=== PATIENT | female | born 1995 | race African-American/Black ===

== ENCOUNTER 2020-11-05 19:20 | Emergency (ER) | payer BC, MEDICAID ==
[~2020-11-05] VITALS: Ht 177.8 cm; Wt 86.2 kg
[2020-11-05 20:10] VITALS: BP 127/69
--- NOTE | 2020-11-05 20:13 | NUR ---
TO LOBBY A/W BED AMBULATORY
[2020-11-05 21:09] LABS: BASOPHILS % (AUTO) 0.2 % (0.0-2.0); EOSINOPHILS # (AUTO) 0.1 K/uL (0-0.4); EOSINOPHILS % (AUTO) 1.2 % (0.0-4.0); HEMATOCRIT 32.5 % (36-48); HEMOGLOBIN 10.7 g/dL (12.0-16.0); LYMPHOCYTES # (AUTO) 1.7 K/uL (2.5-16.5); LYMPHOCYTES % (AUTO) 29.7 % (20.5-51.1); MEAN CORPUSCULAR HEMOGLOBIN 28 pg (27-31); MEAN CORPUSCULAR HGB CONC 33 g/dL (33-37); MEAN CORPUSCULAR VOLUME 83.6 fL (80-94); MONOCYTES # (AUTO) 0.3 K/uL (0.8-1.0); NEUTROPHILS # (AUTO) 3.6 K/uL (1.8-7.7); NEUTROPHILS % (AUTO) 62.9 % (42.2-75.2); PLATELET COUNT (AUTO) 263 K/uL (140-450); RED BLOOD CELL COUNT(AUTO) 3.88 MIL/uL (4.20-5.40); RED CELL DISTRIBUTION WIDTH 15.4 % (11.6-13.7); WHITE BLOOD COUNT (AUTO) 5.8 K/uL (4.8-10.8)
[2020-11-05 21:29] LABS: ALBUMIN 3.3 g/dL (3.4-5.0); ANION GAP 7.8 (8-16); CARBON DIOXIDE 28.2 mmol/L (21-32); CREATININE 0.8 mg/dL (0.6-1.3); TOTAL BILIRUBIN 0.2 mg/dL (0.0-1.0)
--- NOTE | 2020-11-05 21:36 | NUR ---
To bed 12
--- NOTE | 2020-11-05 22:40 | NUR ---
ERMD at bedside for re-examination and informing about results on patient
[2020-11-05] MEDS ORDERED: KETOROLAC 60 MG/2 ML VIAL IM ONE (22:55)
[2020-11-05] MEDS ORDERED: NACL 0.9% 1,000 ML IV ONE (22:55)
[2020-11-05] MEDS ORDERED: NAPR-54 PO (22:59)
--- NOTE | 2020-11-06 00:18 | NUR ---
IV removed, catheter intact and site benign. Applied folded 4x4 gauze and tape to stop bleeding.
[2020-11-06 00:23] VITALS: BP 118/47
== END 2020-11-06 00:21 | disposition home or self-care (01) ==
LOC: MED 19:20
DX: N93.9 Abnormal uterine and vaginal bleeding, unspecified (principal); Z79.899 Other long term (current) drug therapy
CPT/HCPCS: 36415; 80053; 84703; 85025; 86900; 86901; 96360; 96372; 99284; J1050; J1885; J7030

== ENCOUNTER 2021-02-05 21:54 | Emergency (ER) | payer MEDICAID ==
[~2021-02-05] VITALS: Ht 177.8 cm; Wt 87.5 kg
[~2021-02-05 21:54] MED LIST: NAPR-54 PO
[2021-02-05 22:11] VITALS: BP 129/80
--- NOTE | 2021-02-05 22:11 | NUR ---
TO BED AMBULATORY
[2021-02-05 22:15] VITALS: BP 129/80
--- NOTE | 2021-02-05 22:15 | NUR ---
25 YO F BIB SELF WITH C/C OF 9/10 VAGINAL PAIN X1 WEEK. DENIES DISCHARGE.+ODOR. PT STATES SHE IS ON CONTROL TO HELP CONTROL VAGINAL BLEEDING, IS ONLY SPOTTING NOW. REPORTS INCREASED FREQUENCY WITH URINATION. +BURNING +LOWER BACK PAIN, AND ABD CRAMPING. ALL NEEDS MET AT THIS TIME. BED LOCKED IN LOWEST POSITION,SIDE RAILS X1. HX:FIBRIODS DENIES RX AND ALLERGIES
--- NOTE | 2021-02-05 22:58 | NUR ---
WET MOUNT COLLECTED AND TAKEN TO LAB. PROTEIN SCIENTIST STATED TO LEAVE SPECIMEN ON TABLE.
[2021-02-05 23:37] LABS: APPEARANCE,URINE CLEAR (CLEAR); BILIRUBIN,URINE NEGATIVE (NEGATIVE); BLOOD, URINE NEGATIVE (NEGATIVE); COLOR,URINE YELLOW (YELLOW); LEUKOCYTE ESTERASE ,URINE NEGATIVE (NEGATIVE); NITRITE, URINE NEGATIVE (NEGATIVE); PH,URINE 5.5 (5.0-9.0); UGLUCOSE NEGATIVE (NEGATIVE)
[2021-02-06] MEDS ORDERED: KETOROLAC 60 MG/2 ML VIAL IM ONE (00:10)
[2021-02-06] MEDS ORDERED: METR-520 PO (00:45)
[2021-02-06] MEDS ORDERED: NAPR-54 PO (00:47)
--- NOTE | 2021-02-06 00:50 | NUR ---
PATIENT EXAMINED AND CLEARED DISCHARGE BY DR. WADE. DISCHARGE INSTRUCTIONS AND MEDICAITON ADMINISTRATION PROVIDED BY DR. WADE. RX OF DULCE MARIA AND RUTHY. PT AMBULATORY TO PERSONAL VEHICLE IN STABLE CONDITION.
== END 2021-02-06 00:50 | disposition home or self-care (01) ==
LOC: MED 21:54
DX: N76.0 Acute vaginitis (principal); B96.89 Other specified bacterial agents as the cause of diseases classified elsewhere; Z79.899 Other long term (current) drug therapy
CPT/HCPCS: 81003; 81025; 87210; 96372; 99283; J1885

== ENCOUNTER 2021-10-28 22:00 | Emergency (ER) | payer MEDICAID ==
[~2021-10-28] VITALS: Ht 177.8 cm; Wt 98.9 kg
[~2021-10-28 22:00] MED LIST changes: +METR-520 PO
[2021-10-28 22:08] VITALS: BP 116/59
--- NOTE | 2021-10-28 22:14 | NUR ---
PATIENT AMBULATED TO THE BATHROOM FOR URINE COLLECTION
--- NOTE | 2021-10-28 22:20 | NUR ---
[facility]
--- NOTE | 2021-10-28 23:42 | NUR ---
seen by KRISTOFER MOREL in chair A
--- NOTE | 2021-10-29 00:04 | NUR ---
PT TO BED 6 AMBULATORY
[2021-10-29 00:54] LABS: APPEARANCE,URINE CLEAR (CLEAR); BILIRUBIN,URINE NEGATIVE (NEGATIVE); BLOOD, URINE 2+ (NEGATIVE); COLOR,URINE YELLOW (YELLOW); LEUKOCYTE ESTERASE ,URINE NEGATIVE (NEGATIVE); NITRITE, URINE NEGATIVE (NEGATIVE); UGLUCOSE NEGATIVE (NEGATIVE)
--- NOTE | 2021-10-29 01:06 | NUR ---
LAB AT BEDSIDE
--- NOTE | 2021-10-29 01:14 | NUR ---
25YR OLD FEMALE BIB SELF C/O PELVIC PAIN X3DAYS. DENIES VAG DISCHARGE OR BLEEDING. STATES SPOTTING DARK BROWN BLOOD. HX OF FIBROIDS. PT IS A&OX4. RESP EVEN AND UNLABORED. PAIN LEVEL OF 10/10. DENIES FEVER N/V/D. PT IS IN GOWN HOB ELEVATED. BED AT LOWEST POSITION NKDA UTERINE FIBROIDS
[2021-10-29 01:15] LABS: RBC,URINE 0-5 /HPF (0-5); WBC,URINE 0-5 /HPF (0-5)
[2021-10-29 01:30] LABS: BASOPHILS % (AUTO) 0.4 % (0.0-2.0); EOSINOPHILS # (AUTO) 0.1 K/uL (0-0.4); EOSINOPHILS % (AUTO) 1.3 % (0.0-4.0); HEMATOCRIT 33.9 % (36-48); HEMOGLOBIN 11.1 g/dL (12.0-16.0); LYMPHOCYTES % (AUTO) 27.9 % (20.5-51.1); MEAN CORPUSCULAR HEMOGLOBIN 26 pg (27-31); MEAN CORPUSCULAR HGB CONC 33 g/dL (33-37); MEAN CORPUSCULAR VOLUME 80.6 fL (80-94); MONOCYTES # (AUTO) 0.5 K/uL (0.8-1.0); MONOCYTES % (AUTO) 6.7 % (1.7-9.3); NEUTROPHILS # (AUTO) 4.6 K/uL (1.8-7.7); NEUTROPHILS % (AUTO) 63.7 % (42.2-75.2); PLATELET COUNT (AUTO) 310 K/uL (140-450); RED BLOOD CELL COUNT(AUTO) 4.21 MIL/uL (4.20-5.40); RED CELL DISTRIBUTION WIDTH 14.1 % (11.6-13.7); WHITE BLOOD COUNT (AUTO) 7.2 K/uL (4.8-10.8)
[2021-10-29 01:51] LABS: ALBUMIN 3.7 g/dL (3.4-5.0); CREATININE 0.9 mg/dL (0.6-1.3); TOTAL BILIRUBIN 0.4 mg/dL (0.0-1.0)
[2021-10-29] MEDS ORDERED: NAPR-54 PO (04:14)
--- NOTE | 2021-10-29 04:35 | NUR ---
PT PROVIDED WITH DISCHARGE INSTRUCTIONS BY DR. WADE. RX OF NAPROSYN GIVEN
--- NOTE | 2021-10-29 04:37 | NUR ---
The patient's care was reviewed and supervised by Beata Swartz RN.
== END 2021-10-29 04:23 | disposition home or self-care (01) ==
LOC: MED 22:00
DX: O34.11 Maternal care for benign tumor of corpus uteri, first trimester (principal); Z3A.01 Less than 8 weeks gestation of pregnancy
CPT/HCPCS: 36415; 76856; 80053; 81001; 81025; 83690; 85025; 87086; 87210; 99284; Q0092

== ENCOUNTER 2023-05-12 13:01 | Emergency (ER) | payer MEDICAID ==
[~2023-05-12] VITALS: Ht 177.8 cm; Wt 112.5 kg
[2023-05-12 13:10] VITALS: BP 120/77; PULSE 76; RESP 19; TEMP 98.4; O2SAT 97
[2023-05-12 14:06] LABS: BASOPHILS % (AUTO) 0.7 % (0.0-2.0); EOSINOPHILS % (AUTO) 0.8 % (0.0-4.0); HEMATOCRIT 39.1 % (36-48); HEMOGLOBIN 13.1 g/dL (12.0-16.0); LYMPHOCYTES # (AUTO) 1.9 K/uL (2.5-16.5); LYMPHOCYTES % (AUTO) 38.6 % (20.5-51.1); MEAN CORPUSCULAR HEMOGLOBIN 29 pg (27-31); MEAN CORPUSCULAR HGB CONC 34 g/dL (33-37); MEAN CORPUSCULAR VOLUME 84.7 fL (80-94); MONOCYTES # (AUTO) 0.2 K/uL (0.8-1.0); MONOCYTES % (AUTO) 4.1 % (1.7-9.3); NEUTROPHILS # (AUTO) 2.8 K/uL (1.8-7.7); NEUTROPHILS % (AUTO) 55.8 % (42.2-75.2); PLATELET COUNT (AUTO) 263 K/uL (140-450); RED BLOOD CELL COUNT(AUTO) 4.61 MIL/uL (4.20-5.40); RED CELL DISTRIBUTION WIDTH 13.6 % (11.6-13.7)
[2023-05-12 14:18] LABS: ANION GAP 8.4 (8-16); CALCIUM 8.9 mg/dL (8.5-10.1); CARBON DIOXIDE 30.5 mmol/L (21-32); CREATININE 0.7 mg/dL (0.6-1.3); POTASSIUM 3.9 mmol/L (3.5-5.1)
[2023-05-12 14:22] LABS: ALBUMIN 3.4 g/dL (3.4-5.0); BILIRUBIN,DIRECT 0.1 mg/dL (0.0-0.3); TOTAL BILIRUBIN 0.2 mg/dL (0.0-1.0); TOTAL PROTEIN, SERUM 8.6 g/dL (6.4-8.2)
[2023-05-12 14:29] LABS: APPEARANCE,URINE CLEAR (CLEAR); BILIRUBIN,URINE NEGATIVE (NEGATIVE); BLOOD, URINE 2+ (NEGATIVE); COLOR,URINE YELLOW (YELLOW); LEUKOCYTE ESTERASE ,URINE NEGATIVE (NEGATIVE); NITRITE, URINE NEGATIVE (NEGATIVE); PROTEIN,URINE NEGATIVE (NEGATIVE); UGLUCOSE NEGATIVE (NEGATIVE); UROBILINOGEN,URINE 0.2 EU/dL (0.2 - 1)
[2023-05-12] MEDS ORDERED: ACET-503 PO (14:52)
[2023-05-12] MEDS ORDERED: IBUP-2213 PO (14:52)
[2023-05-12 14:59] LABS: BACTERIA,URINE FEW /HPF (None Seen); MUCUS,URINE None Seen /LPF (None Seen); SQUAMOUS EPITHELIAL CELL,UR 4-10 (MOD) /LPF (0-3 (FEW)); TRICHOMONAS,URINE None Seen /HPF (None Seen); WBC,URINE 0-5 /HPF (0-5); WHITE BLOOD CELL CASTS,URINE None Seen /LPF (None Seen); YEAST,URINE None Seen /HPF (None Seen)
[2023-05-12] MEDS: KETOROLAC 60 MG/2 ML VIAL IM ONE (15:11)
[2023-05-12 15:28] VITALS: BP 122/72; PULSE 68; RESP 17; TEMP 98.2; O2SAT 100
== END 2023-05-12 15:45 | disposition home or self-care (01) ==
LOC: MED 13:01
DX: R10.30 Lower abdominal pain, unspecified (principal); M54.50 Low back pain, unspecified; Z79.899 Other long term (current) drug therapy
CPT/HCPCS: 36415; 80048; 80076; 81001; 81025; 83690; 85025; 99283; J1885